=== PATIENT | male | born 1970 | race Caucasian/White ===

== ENCOUNTER → 2023-08-03 09:04 | Outpatient (REF) | payer SELFPAY | LOC: HWRAD 09:04 | PROVIDERS: ATTENDING PHYSICIAN Internal Medicine Cardiovascular Disease; FAMILY PHYSICIAN Internal Medicine | DX: E78.5 Hyperlipidemia, unspecified (principal) | CPT/HCPCS: 75571 ==

== ENCOUNTER → 2025-05-15 08:37 | Outpatient (REF) | payer BC, SELFPAY | LOC: RCS 08:37 | PROVIDERS: ATTENDING PHYSICIAN Specialist; FAMILY PHYSICIAN Internal Medicine | DX: Z01.818 Encounter for other preprocedural examination (principal) | CPT/HCPCS: 93005 ==